=== PATIENT | male | born 1970 | race Caucasian/White ===

== ENCOUNTER 2022-08-24 13:11 | Emergency (ER) | payer OTHER, MEDICAID ==
[~2022-08-24] VITALS: Ht 160 cm; Wt 61.2 kg
--- NOTE | 2022-08-24 13:11 | NUR ---
BIBA BLS TO ER BED 8
[2022-08-24 13:16] VITALS: BP 117/77; PULSE 70; RESP 16; TEMP 97.8; O2SAT 96
--- NOTE | 2022-08-24 14:01 | NUR ---
Patient B[facility] from [facility] facility, no S/S of pain/discomfort, non-verbal, developmentally delayed. Patient brought in for chewing and possibly swallowing a plastic bag. Patient has no S/S of SOB, saturating on room air WNL. Patient seen by the provider, CXR/abdominal X-ray ordered and completed at the bedside. Patient ti stable on the stretcher in the lowest position, wheels locked, call hayes within reach and caregiver at the bedside, awaiting disposition.
[2022-08-24 14:10] VITALS: BP 117/77; PULSE 79; RESP 12; O2SAT 96
--- NOTE | 2022-08-24 14:59 | NUR ---
Patient discharged with v/s stable. Written and verbal after care instructions given and explained. Patients caregiver verbalized understanding. Wheel Chair Assisted with by caregiver. All questions addressed prior to discharge. Advised to follow up with PMD.
== END 2022-08-24 14:59 | disposition home or self-care (01) ==
LOC: MED 13:11
DX: T18.8XXA Foreign body in other parts of alimentary tract, initial encounter (principal); F50.89 Other specified eating disorder; Z86.69 Personal history of other diseases of the nervous system and sense organs; X58.XXXA Exposure to other specified factors, initial encounter; Y92.89 Other specified places as the place of occurrence of the external cause; Y93.89 Activity, other specified; Y99.8 Other external cause status
CPT/HCPCS: 76010; 99283; Q0092